=== PATIENT | female | born 1970 | race Two or more races ===

== ENCOUNTER 2019-05-19 19:39 | Emergency (ER) | payer MEDICAID, OTHER ==
--- NOTE | 2019-05-19 21:33 | EDM.PDOC ---
ED HPI GENERAL MEDICAL PROBLEM - General Chief Complaint: Upper Extremity Injury/Pain Stated Complaint: FELL BOTH KNEE PAIN Time Seen by Provider: 05/19/19 20:25 Source of Information: Reports: Patient History Limitations: Reports: No Limitations - History of Present Illness INITIAL COMMENTS - FREE TEXT/NARRATIVE: Patient presents today with concern for bilateral knee pain, pain in her right ankle with some increased throbbing and pain in both of her hands after she tripped on the sidewalk this afternoon in her legs went out from underneath her. 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 Additionally both of her knees hurt, and she has pain in both of her hands where she landed. Slight abrasions are noted, no significant joint swelling. She has been able to emulate okay, did not sustain any other injuries and did not hit her head. No history of low impact fractures or o musculoskeletal abnormalities. Does have a history of colon cancer requiring a colostomy and is status post chemotherapy and radiation from about 4 years ago. Extensive family history and personal history of arthritis. right ankle Pain Score (Numeric/FACES): 6 - Related Data Allergies Allergy/AdvReac Type Severity Reaction Status Date / Time No Known Allergies Allergy Verified 09/07/16 10:39 Home Meds: Home Meds NK [No Known Home Meds] 05/19/19 [History] Past Medical History Oncologic (Cancer) History: Reports: Colon Social & Family History - Family History Family Medical History: Noncontributory - Tobacco Use Smoking Status *Q: Unknown Ever Smoked - Recreational Drug Use Recreational Drug Use: No ED ROS GENERAL - Review of Systems Review Of Systems: ROS reveals no pertinent complaints other than HPI. ED EXAM, GENERAL - Physical Exam Exam: See Below Free Text/Narrative:: Gen.: Alert, very pleasant no acute distress. Heart is regular, lungs clear. Her right ankle is minimally swollen with no discoloration, and is tender on the medial posterior edge of the malleolus. The lateral side and fifth metatarsal head are nontender, and she walks with a pretty normal gait. No ligamentous laxity is noted on anterior and posterior drawer testing. Knee exam likewise shows abrasions bilaterally on the anterior tibia with no surrounding erythema and wounds appear clean. She has no joint swelling noted of either knee , no ligamentous laxity and no pain with meniscal or provocative testing. Both her hands have slight abrasions on the palms. 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 Course - Vital Signs Text/Narrative:: Right ankle x-ray ordered based on [facility] ankle rules. Otherwise she does not appear to have sustained any significant injury and is greatly reassured by exam. Last Recorded V/S: Last Vital Signs Temp 36.4 C 05/19/19 21:35 Pulse 66 05/19/19 21:35 Resp 18 05/19/19 21:35 BP 111/69 05/19/19 21:35 Pulse Ox 100 05/19/19 21:35 - Re-Assessments/Exams Free Text/Narrative Re-Assessment/Exam: X-ray reviewed, no fractures seen. We'll call if radiology read is different. Discussed ice, keeping wound clean, ibuprofen or Tylenol if needed. Discussed signs or symptoms such probably need for further evaluation and QUESTIONS were answered, she is in agreement with this plan Departure - Departure Time of Disposition: 21:29 Disposition: Home, Self-Care 01 Condition: Good Clinical Impression: Contusion, Abrasion, Ankle pain, right - Discharge Information *PRESCRIPTION DRUG MONITORING PROGRAM REVIEWED*: Not Applicable *COPY OF PRESCRIPTION DRUG MONITORING REPORT IN PATIENT RITU: Not Applicable Instructions: Musculoskeletal Pain Referrals: Ismael Galarza MD [Primary Care Provider] - Forms: ED Department Discharge Additional Instructions: probably it will hurt a bit more tomorrow. If bruises and pain are not improved after 4 days, or if you have redness, worsening pain, warmth, or swelling in your joints, or a fever, should be rechecked. can use ice to help with the pain over the counter pain meds are also fine if needed, sometimes an amina wrap is helpful be sure to keep open scrapes clean. You may also cover them with vasoline if desired or just leave open to air if ankle is still painful next week, see regular doctor for recheck. If the radiologist who looks at the xray sees something we will give you a call, but I do not see a fracture Take very good care,
--- NOTE | 2019-05-20 11:11 | CR ---
INDICATION: Right ankle pain, right ankle gave out. RIGHT ANKLE: Four views of the right ankle revealed soft tissue swelling overlying the lateral malleolus. The ankle mortise appears to be intact without a fracture or dislocation identified. Bone density appeared to be normal. IMPRESSION: Except for mild soft tissue swelling laterally, normal appearing right ankle. If occult abnormality is suspected clinically, additional examination such as MRI may be helpful. MTDD
== END 2019-05-19 21:55 | disposition home or self-care (01) ==
LOC: FB.ED 19:39
DX: S60.512A Abrasion of left hand, initial encounter (principal); S60.511A Abrasion of right hand, initial encounter; S80.812A Abrasion, left lower leg, initial encounter; S80.811A Abrasion, right lower leg, initial encounter; T14.8XXA Other injury of unspecified body region, initial encounter; M25.571 Pain in right ankle and joints of right foot; Z85.038 Personal history of other malignant neoplasm of large intestine; W10.1XXA Fall (on)(from) sidewalk curb, initial encounter
CPT/HCPCS: 73610-RT; 99283; 99283-25

== ENCOUNTER 2025-02-12 21:32 | Emergency (ER) | payer OTHER ==
[2025-02-12] MEDS ORDERED: predniSONE 20 MG Tab PO ONE (21:33)
[2025-02-12 22:04] LABS: BASOPHILS PERCENT AUTO 0.4 % (0.2-1.5); EOSINOPHILS ABSOLUTE AUTO 0.2 x10-3/uL (0.0-0.8); EOSINOPHILS PERCENT AUTO 1.4 % (0.6-8.1); HEMATOCRIT 44.3 % (34.2-48.2); HEMOGLOBIN 14.6 g/dL (11.4-15.5); LYMPHOCYTES ABSOLUTE AUTO 2.3 x10-3/uL (1.0-4.4); LYMPHOCYTES PERCENT AUTO 21.2 % (18.4-52.1); MEAN CORPUSCULAR HEMOGLOBIN 29.3 pg (23.9-33.9); MEAN CORPUSCULAR VOLUME 88.8 fL (76.7-100.5); MEAN PLATELET VOLUME 7.8 fL (7.1-12.4); MONOCYTES ABSOLUTE AUTO 0.7 x10-3/uL (0.3-1.0); MONOCYTES PERCENT AUTO 6.2 % (4.4-15.7); NEUTROPHILS ABSOLUTE AUTO 7.6 x10-3/uL (1.5-6.3); NEUTROPHILS PERCENT AUTO 70.9 % (30.8-76.2); PLATELET COUNT,PLT 342 x10(3)uL (151-488); RED BLOOD CELL COUNT 4.99 x10(6)uL (3.60-5.20); RED CELL DISTRIBUTION WIDTH 13.6 % (12.3-16.5); WHITE BLOOD CELL COUNT,WBC 10.7 x10-3/uL (3.0-10.3)
[2025-02-12 22:11] LABS: BLOOD UREA NITROGEN,BUN 12 mg/dL (7-18); CALCIUM 9.5 mg/dL (8.6-10.2); CARBON DIOXIDE,CO2 28 mmol/L (21-32); CHLORIDE,CL 105 mmol/L (100-110); EST CRCL DRUG DOSING (CG) 49.68 mL/min; ESTIMATED GFR 66 mL/min (>60); GLUCOSE RANDOM 118 mg/dL (80-116); POTASSIUM,K 3.2 mmol/L (3.5-5.3); SODIUM,NA 142 mmol/L (135-145)
[2025-02-12 22:17] LABS: ALANINE AMINOTRANSFERASE,ALT 29 U/L (12-36); ALBUMIN 3.9 g/dL (3.5-5.2); ALKALINE PHOSPHATASE 94 IU/L (56-112); ASPARTATE AMNIOTRANSFERASE,AST 24 IU/L (5-25); BILIRUBIN TOTAL 0.5 mg/dL (0.1-1.3); PROTEIN TOTAL,TP 7.9 g/dL (6.0-8.0)
[2025-02-12 22:46] VITALS: BP 125/78; PULSE 87
== END 2025-02-12 22:45 | disposition home or self-care (01) ==
LOC: FB.ED 21:32
DX: K94.09 Other complications of colostomy (principal)
CPT/HCPCS: 36415; 80053; 85025; 99283; 99284; J7512